=== PATIENT | female | born 1960 | race Caucasian/White ===

== ENCOUNTER 2020-02-25 11:03 | Emergency (ER) | payer MEDICAID ==
[~2020-02-25] VITALS: Ht 160 cm; Wt 45.0 kg
[2020-02-25] MEDS ORDERED: ketorolac tromethamine 15mg/ml inj. IM ONE (12:10)
[2020-02-25] MEDS ORDERED: cyclobenzaprine 10mg tablet PO ONE (12:10)
[2020-02-25] MEDS ORDERED: ORPH100T2 PO (12:57)
[2020-02-25 14:28] VITALS: BP 130/76
--- NOTE | 2020-02-25 14:30 | NUR ---
pt was dc'd at 1330
== END 2020-02-25 14:30 | disposition home or self-care (01) ==
LOC: ER 11:05
DX: S29.012A Strain of muscle and tendon of back wall of thorax, initial encounter (principal); R07.89 Other chest pain; G89.29 Other chronic pain; R05 Cough; F17.200 Nicotine dependence, unspecified, uncomplicated; Z88.1 Allergy status to other antibiotic agents; Z88.5 Allergy status to narcotic agent; Z79.899 Other long term (current) drug therapy; X58.XXXA Exposure to other specified factors, initial encounter; Y93.89 Activity, other specified; Y92.89 Other specified places as the place of occurrence of the external cause; Y99.8 Other external cause status
CPT/HCPCS: 71046; 93005; 96372; 99283; J1885

== ENCOUNTER 2022-02-04 16:09 | Emergency (ER) | payer MEDICAID ==
[~2022-02-04] VITALS: Ht 160 cm; Wt 45.3 kg
[~2022-02-04 16:09] MED LIST: ORPH100T2 PO
[2022-02-04 17:52] VITALS: BP 187/104
[2022-02-04] MEDS ORDERED: gabapentin 400mg capsule PO ONE (19:55)
== END 2022-02-04 20:17 | disposition home or self-care (01) ==
LOC: ER 16:10
DX: M54.31 Sciatica, right side (principal); G89.29 Other chronic pain; M54.2 Cervicalgia; Z88.0 Allergy status to penicillin; Z88.5 Allergy status to narcotic agent
CPT/HCPCS: 99283